=== PATIENT | female | born 1960 | race Caucasian/White ===

== ENCOUNTER 2017-04-14 02:48 | Inpatient (IN) | payer OTHER ==
[~2017-04-14] VITALS: Ht 165.1 cm; Wt 108.0 kg
[~2017-04-14 02:48] MED LIST: BUSPIRONE HCL15 M1 PO; DICLOFENAC SOD100 MG PO; FLUOXETINE HCL40 M1 PO; LEVOTHYROXINE100 MC1 PO; NAPROXEN500 M3 PO; NEXIUM40 M1 PO; PREMPRO 0.45-11 EACH PO
--- NOTE | 2017-04-14 11:41 | Operative Report ---
Operative/Inv Procedure Report Surgery Date: 04/14/17 Name of Procedure: Laparoscopic Sleeve Gastrectomy, Laparoscopic Hiatal hernia repair, Laparoscopic lysis of adhesions ~30 minutes Pre-Operative Diagnosis: Morbid Obesity BMI 41, Hypothyroid, Depression Post-Operative Diagnosis: Morbid Obesity BMI 41, Hypothyroid, Depression, Hiatal hernia Estimated Blood Loss: less than 50ml Surgeon/[employer]ry Melt Supervisor: Romain Magana DO, MD Anesthesia: general endotracheal tube IV Fluids: 900 cc Drains: None Specimens: Stomach Complications: None Condition: Stable Operative Indication: This is a 56-year-old female who presented to the office for workup for bariatric surgery. After appropriate workup was completed I discussed with the patient the band, the sleeve, and the gastric bypass. The patient chose to undergo a sleeve gastrectomy. All risks including but not limited to bleeding, infection, leak, stricture, injury to surrounding bowel/esophagus/stomach/liver/ spleen, long-term reflux, DVT/PE, and mortality of 03/999 patients were discussed in detail. The patient understood everything and decided to proceed. Operative/Procedure Note Note: The patient was brought to the operating room and placed on the operating room table in supine position. Venodyne stockings were placed and adequate general endotracheal anesthesia was obtained. The patient was prepped and draped in standard surgical fashion. Began the procedure by making a 2 cm transverse incision supraumbilically and slightly to the left of the midline. Then using a 12 mm clear Visiport and a 10 mm 0 laparoscope, the abdominal cavity was accessed. Great care was taken to go through the anterior rectus sheath, the posterior rectus sheath, and through the peritoneum. Once we entered the peritoneum the abdominal cavity was insufflated to 15 mmHg. Upon initial examination we did note omental adhesions in the midline and right side of abdomen. 5 mm port was placed in the left lateral position and adhesiolysis was done using harmonic scalpel for ~30 minutes until we had adequate room/ visualization for subsequent port placement. Accessory trocars were placed, 5 mm in the epigastrium for the Lakisha liver retractor. The retractor was inserted and the liver was retracted anteriorly exposing the hiatus, small hiatal hernia was seen. 5 mm ports were placed in the right and left upper quadrant, and a 15 mm right lateral port. Began the procedure by mobilizing the greater curvature of the stomach approximately 7 cm from the pylorus. Once the retrogastric space was reached the whole greater curvature was mobilized maintaining hemostasis using Harmonic scalpel. Full hiatal dissection was performed, a small hiatal hernia was seen. The left heber of the diaphragm was dissected away from the esophagus, reducing the hernia sac. We then brought our attention to the right heber, the pars flaccida was opened until the right heber was clearly visualized. Following this the right heber was dissected away from the esophagus as well and the esophagus was circumferentially dissected out of the chest. At the completion of dissection the esophagus was in the abdominal cavity for about 2-3 cm. The esophagus was retracted anteriorly and the hiatus was closed using 2-0 Tycron suture. At the completion of the closure there was ample room for the esophagus and the hiatus was adequately closed. Posterior adhesions were taken down using Harmonic scalpel as well. Once the stomach was adequately mobilized a 38 Nepali bougie was inserted and placed along the lesser curvature of the stomach. Once the bougie was in the appropriate position we began creating our sleeve, two 60 mm black staple loads with seamguard followed by two 60 mm purple staple loads with seamguard as well, and finished with a 45 mm purple plain load. Great care was taken to leave ample room at the incisura angularis, to prevent any twisting or kinking of the sleeve, to stay lateral to the esophagogastric fat pad, and to do a full fundal excision. At the completion of the staple line the staple line was examined, it appeared intact and no obvious bleeding was noted. The bougie was removed, the sleeve was lying nicely without any twisting or kinking. The resected stomach was removed through the right lateral port site. The port and the left upper quadrant were irrigated until clear. All ports were removed under direct visualization no obvious bleeding was noted. The 15 mm port site fascia was closed using 0 Vicryl suture. The skin was closed using 4-0 Monocryl. Steri-Strips and dressings were placed. The patient was successfully extubated and transferred to the recovery room in stable condition. The patient tolerated the procedure well with no complications. Findings: 2-3 cm hiatal hernia, 38 Fr Bougie, Midline/RUQ omental adhesions CC: Chloé SHI,Latrice
--- NOTE | 2017-04-14 12:00 | Admission Core Measures ---
Acute Coronary Syndrome (CM) ACS Core Measures Acute Coronary Syndrome Diagnosis No Congestive Heart Failure (NEW) CHF Core Measures Congestive Heart Failure Diagnosis No Cerebrovascular Accident (NEW) CVA Core Measures CVA/TIA Diagnosis No Venous Thromboembolism VTE Core Avril (View Protocol) VTE Risk Factors Surgery No Mechanical VTE Prophylaxis d/t N/A MechProphylax Ordered No VTE Pharm Prophylaxis d/t NA PharmProphylax ordered Problem List As ranked by this Provider includes Assessment & Plan 1. S/P laparoscopic sleeve gastrectomy 2. GERD (gastroesophageal reflux disease) 3. Morbid obesity HOME MEDS Home Med List Buspirone HCl 15 MG TABLET 1 TAB PO BID ANXIETY (Reported) Conjugated Estrogen Medroxypr (Prempro 0.45-1.5 MG Tablet) 1 EACH TABLET 1 TAB PO DAILY menopause (Reported) Diclofenac Sodium (Diclofenac Sodium ER) 100 MG TAB.ER.24H 1 TAB PO DAILY PAIN (Reported) Esomeprazole (Nexium) 40 MG CAPSULE.DR 1 CAP PO DAILY STOMACH IRRITATION ( Reported) Fluoxetine HCl 40 MG CAPSULE 1 CAP PO DAILY Depression (Reported) Levothyroxine Sodium 100 MCG TABLET 1 TAB PO DAILY hypothyroidism (Reported)
--- NOTE | 2017-04-14 12:03 | Surg Short-stay <48hrs Dis Sum ---
Visit Information Visit Dates Admission Date: 04/14/17 Discharge Date: 04/16/17 Surgical Short Stay DC Summary Admission Diagnosis: Morbid Obesity BMI 41, Hypothyroid, Depression Final Diagnosis: Morbid Obesity BMI 41, Hypothyroid, Depression, Hiatal hernia Procedure(s): Surgery Date: 04/14/17 Name of Procedure: Laparoscopic Sleeve Gastrectomy, Laparoscopic Hiatal hernia repair, Laparoscopic lysis of adhesions ~30 minutes Summary/Significant Findings: Electively scheduled laparoscopic sleeve gastrectomy, hiatal hernia repair, lysis of adhesions, done by on 04/14/17 for history of morbid obesity (BMI 41), hypothyroidism, depression, and a hiatal hernia appreciated during surgery. She was started on a stage 1 bariatric diet post-operatively. Pain control was transitioned from iv to oral medication. Discharged to home once tolerating diet and pain controlled. No lovenox indicated according to pre-op risk assessment. Condition at Discharge: stable Discharge Disposition: home or self care Discharge instructions provided to patient/family: Yes Post discharge follow-up plan: one week follow up with Copies to: Chloé SHI,Latrice
--- NOTE | 2017-04-14 12:08 | Patient Discharge Instructions ---
Discharge Instructions General Discharge Information You were seen/treated for: Surgery Date: 04/14/17 Name of Procedure: Laparoscopic Sleeve Gastrectomy, Laparoscopic Morbid Obesity BMI 41, Hypothyroid , Depression, Hiatal hernia You had these procedures: Surgery Date: 04/14/17 Name of Procedure: Laparoscopic Sleeve Gastrectomy, Laparoscopic Hiatal hernia repair, Laparoscopic lysis of adhesions ~30 minutes Watch for these problems: fever>101.3, increased pain, redness/swelling/drainage, dizziness, shortness of breath, chest pains No bath, but you may shower: Yes Other wound care: ok to remove outer dressings. leave white steri strips in place. keep incisions clean & dry. Diet Continue normal diet: No Recommended Diet: Bariatric Additional DIET Information: weekly bariatric stage diet advancements as directed, as tolerated Activity Full Activity/No Limits: No Activity Self Limited: Yes Pounds, do NOT lift more than: 10 Other activity limits: no heavy lifting. no strenuous activity. Additional ACTIVITY Info: walk frequently Acute Coronary Syndrome Inclusion Criteria At DC or during hospital stay patient has or had the following: ACS DIAGNOSIS No Discharge Core Measures Meds if any: Prescribed or Continued at Discharge Meds if any: NOT Prescribed or Continued at Discharge Congestive Heart Failure Inclusion Criteria At DC or during hospital stay patient has or had the following: CHF DIAGNOSIS No Discharge Core Measures Meds if any: Prescribed or Continued at Discharge Meds if any: NOT Prescribed or Continued at Discharge Cerebrovascular accident Inclusion Criteria At DC or during hospital stay patient has or had the following: CVA/TIA Diagnosis No Discharge Core Measures Meds if any: Prescribed or Continued at Discharge Meds if any: NOT Prescribed or Continued at Discharge Venous thromboembolism Inclusion Criteria VTE Diagnosis No VTE Type NONE VTE Confirmed by (Test) NONE Discharge Core Measures - Per Current guidelines, there needs to be overlap - treatment for the first 5 days of Warfarin therapy. - If discharged on Warfarin prior to 5 days of - overlap therapy, the patient will need to be - assessed for post discharge needs including - *Post discharge parental anticoagulation - *Warfarin and/or parental anticoagulation education - *Follow up date to check INR post discharge At least 5 days overlap therapy as Inpatient No Meds if any: Prescribed or Continued at Discharge Note: Overlap Therapy is Warfarin and Anticoagulant Meds if any: NOT Prescribed or Continued at Discharge
[2017-04-14] MEDS ORDERED: HYCET 7.5 MG-3473 ML PO (12:09)
[2017-04-14 13:00] VITALS: BP 110/76
--- NOTE | 2017-04-14 14:13 | PN- Bariatrics ---
Subjective Subjective: POSTOP CHECK Patient reports gas pain spreading to her shoulders. She reports her pain and nausea is well controlled. Denies voiding or passing flatus. Has not ambulated in the halls yet. Offer no other complaints. Currently tolerating small sips of her stage 1 diet. Objective Vital Signs and I&Os Vital Signs Date Time Temp Pulse Resp B/P B/P Pulse O2 O2 Flow FiO2 Mean Ox Delivery Rate 04/14 1344 Room Air Room Air Intake & Output 04/14 1600 04/14 0804/14 0000 04/13 1600 04/13 0800 04/13 0000 Intake Total Output Total Balance Patient 238 lb Weight Weight Reported by Patient Measurement Method Physical Exam: Gen - resting comfortably accompained by her sister awake an alert in NAD Cardiac - S1S2 noted, RRR Lungs - Diminished due to body habitus, CTAB Abdomen - soft, nondistended, faint bowel sounds, dressings with mild saturation , appropriately tender to palpation neelima-incisionally, no rebound or guarding noted Ext - alps in place, no edema or calf tenderness B/L Current Medications: Current Medications Sig/Sascha Start time Last Medication Dose Route Stop Time Status Admin Acetaminophen 1,000 MG Q6 04/14 1200 AC N/A 1 UNIT IV 04/15 0614 Buspirone HCl 15 MG BID 04/14 2200 AC PO Cefazolin Sodium 2,000 MG Q8H 04/14 1800 AC IV 04/15 0201 Cefazolin Sodium 2,000 MG ONCE ONE 04/14 0715 DC IV 04/14 0716 Dexamethasone 8 MG ONCE PRN 04/14 1330 AC IV PUSH 04/14 2130 Dextrose/Lactated 1,000 ML Q8H 04/14 1330 AC Ringer's IV Fluoxetine HCl 40 MG DAILY 04/15 1000 AC PO Heparin Sodium 5,000 UNIT Q8 04/14 2200 AC (Porcine) SC Heparin Sodium 5,000 UNIT ONCE ONE 04/14 0715 DC (Porcine) SC 04/14 0716 Hydrocodone Bitart/ 15 ML Q6P PRN 04/14 1330 AC Acetaminophen PO Hydromorphone HCl 1 MG Q4P PRN 04/14 1330 AC IV Levothyroxine Sodium 0.1 MG DAILY AC 04/15 0700 AC PO Ondansetron HCl 4 MG Q6P PRN 04/14 1330 AC IV Pantoprazole Sodium 40 MG DAILY 04/15 1000 AC IV Scopolamine HBr 0 .STK-MED ONE 04/14 0911 DC TOP Simethicone 40 MG Q6P PRN 04/14 1330 AC PO Assessment/Plan Assessment/Plan This is a 56 year-old female with a h/o hypothyroid and depression who is POD 0 s/p laparoscopic sleeve gastrectomy, hiatal hernia repair and RIMA secondary to morbid obesity, BMI 41 Cont stage 1 bariatric diet, IVF NPO after midnight for possible UGI tomorrow am Postop abx - ancef x2 Antiemetics/analgesics prn Home meds on board DVT ppx - alps, hsq GI ppx on board Encourage ambulation, IS Core Measures Venous Thromboembolism VTE Risk Factors Surgery No Mechanical VTE Prophylaxis d/t N/A MechProphylax Ordered No VTE Pharm Prophylaxis d/t NA PharmProphylax ordered
[2017-04-14 17:00] VITALS: BP 112/74
[2017-04-14 22:13] VITALS: BP 120/74
[2017-04-15 01:00] VITALS: BP 100/66
[2017-04-15 05:00] VITALS: BP 102/60
--- NOTE | 2017-04-15 07:50 | PN- Bariatrics ---
See Addendum Subjective Subjective: Patient reports improvment in her gas/co2 pain. She denies passing flatus. She reports ambulating in the halls. She reports tolerating stage 1 clears without any nausea or vomiting. She report stiff neck when she recieved dilaudid last night. She reports pain is controlled with Hyacet. She offer no other complaints. Objective Vital Signs and I&Os Vital Signs Date Time Temp Pulse Resp B/P B/P Pulse O2 O2 Flow FiO2 Mean Ox Delivery Rate 04/15 0600 95 Room Air 04/15 0500 97.7 72 20 102/60 94 Room Air 04/15 0100 98.1 62 20 100/66 95 Room Air 04/14 2213 97.7 64 20 120/74 94 Room Air 04/14 2200 94 Room Air 04/14 1800 97 Room Air Room Air 04/14 1700 98.6 70 18 112/74 96 Room Air 04/14 1344 Room Air Room Air 04/14 1330 97 Room Air Room Air 04/14 1300 98.0 67 16 110/76 97 Room Air Room Air Intake & Output 04/15 1600 04/15 0800 04/15 0000 04/14 1600 04/14 0800 04/14 0000 Intake Total 980 1570 305 Output Total 500 0 150 Balance 480 1570 155 Intake, IV 950 1120 125 Intake, Oral 30 450 180 Number 0 0 0 Bowel Movements Output, Urine 500 0 150 Patient 238 lb Weight Weight Reported by Patient Measurement Method Physical Exam: Gen - resting comfortably accompained by her sister awake an alert in NAD Cardiac - S1S2 noted, RRR Lungs - Diminished due to body habitus, CTAB Abdomen - soft, nondistended, faint bowel sounds, one dressing with mild sanguineous saturation, remaining 4 are c/d/i, appropriately tender to palpation neelima-incisionally, no rebound or guarding noted Ext - alps in place, no edema or calf tenderness B/L Current Medications: Current Medications Sig/Sascha Start time Last Medication Dose Route Stop Time Status Admin Acetaminophen 1,000 MG Q6H 04/14 1600 AC 04/15 N/A 1 UNIT IV 04/15 1014 0416 Acetaminophen 1,000 MG Q6 04/14 1200 DC N/A 1 UNIT IV 04/15 0614 Buspirone HCl 15 MG BID 04/14 220 AC 04/14 PO 2135 Cefazolin Sodium 2,000 MG Q8H 04/14 1800 DC 04/15 IV 04/15 0201 0247 Dexamethasone 8 MG ONCE PRN 04/14 1330 DC IV PUSH 04/14 2130 Dextrose/Lactated 1,000 ML Q8H 04/14 1330 AC 04/15 Ringer's IV 0543 Fluoxetine HCl 40 MG DAILY 04/15 1000 AC PO Heparin Sodium 5,000 UNIT Q8 04/14 2200 AC 04/15 (Porcine) SC 0544 Hydrocodone Bitart/ 15 ML Q6P PRN 04/14 1330 AC 04/15 Acetaminophen PO 0544 Hydromorphone HCl 1 MG Q4P PRN 04/14 1330 AC 04/15 IV 0023 Levothyroxine Sodium 0.1 MG DAILY AC 04/15 0700 AC 04/15 PO 0544 Ondansetron HCl 4 MG Q6P PRN 04/14 1330 AC IV Pantoprazole Sodium 40 MG DAILY 04/15 1000 AC IV Scopolamine HBr 0 .STK-MED ONE 04/14 0911 DC TOP Simethicone 40 MG Q6P PRN 04/14 1330 AC 04/15 PO 0544 Assessment/Plan Assessment/Plan This is a 56 year-old female with a h/o hypothyroidism and depression who is POD 1 s/p laparoscopic sleeve gastrectomy, hiatal hernia repair and RIMA secondary to morbid obesity who is recovering well Advance to stage 1 bariatric diet D/c IV fluids Antiemetics prn Transition off IV narcotics Home meds on board DVT ppx - alps, hsq GI ppx on board Encourage ambulation, IS Anticiapte d/c within 24-48 hours D/w Dr. Magana Core Measures Venous Thromboembolism VTE Risk Factors Surgery No Mechanical VTE Prophylaxis d/t N/A MechProphylax Ordered No VTE Pharm Prophylaxis d/t NA PharmProphylax ordered
[2017-04-15 12:05] LABS: ABSOLUTE BASOPHIL COUNT 0 /CUMM (0.0-0.2); ABSOLUTE EOSINOPHIL COUNT 0 /CUMM (0.0-0.7); ABSOLUTE GRANULOCYTE CT 6.3 /CUMM (1.4-6.5); ABSOLUTE LYMPH COUNT 2.8 /CUMM (1.2-3.4); ABSOLUTE MONOCYTE COUNT 0.7 /CUMM (0.10-0.60); BASOPHIL % 0.3 % (0.0-2.0); EOSINOPHIL % 0 % (0-5); GRANULOCYTE % 63.7 % (42.2-75.2); HEMATOCRIT 32.8 % (37-47); MEAN CORPUSCULAR HGB 29.9 PG (27.0-31.0); MEAN CORPUSCULAR HGB CONC 33.7 G/DL (33.0-37.0); MEAN CORPUSCULAR VOLUME 88.8 FL (81.0-99.0); MEAN PLATELET VOLUME 7.5 FL (7.4-10.4); PLATELET COUNT 339 /CUMM (130-400); RBC DISTRIBUTION WIDTH 12.8 % (11.5-14.5); RED BLOOD CELL CT 3.69 /CUMM (4.20-5.40); WHITE BLOOD CELL COUNT 9.8 /CUMM (4.8-10.8)
[2017-04-15 13:33] VITALS: BP 118/62
[2017-04-15 22:05] VITALS: BP 110/60
[2017-04-16 06:36] VITALS: BP 94/58
[2017-04-16] MEDS ORDERED: HYCET 7.5 MG-3473 ML PO (07:34)
--- NOTE | 2017-04-16 07:39 | PN- Bariatrics ---
Subjective Subjective: Reports tolerating stage 1 diet. No nausea. Eager to try stage 2 diet. Passing flatus. No bm. Ambulating well. No dizziness. No shortness of breath. No chest pains. Voiding well. Anticipates discharge home today. Objective Vital Signs and I&Os Vital Signs Date Time Temp Pulse Resp B/P B/P Pulse O2 O2 Flow FiO2 Mean Ox Delivery Rate 04/16 0636 98.0 54 18 94/58 94 Room Air 04/16 0600 94 Room Air 04/16 0000 95 Room Air 04/15 2205 98.8 67 18 110/60 95 Room Air 04/15 2200 95 Room Air 04/15 1600 97 Room Air 04/15 1400 97 04/15 1333 98.1 68 20 118/62 97 Intake & Output 04/16 0800 04/16 0000 04/15 1600 04/15 0800 04/15 0000 04/14 1600 Intake Total 90 293 211 8483 1570 305 Output Total 300 500 0 150 Balance 90 466 772 6720 1570 155 Intake, IV 1200 1120 125 Intake, Oral 90 840 420 510 450 180 Number 0 0 0 Bowel Movements Output, Urine 300 500 0 150 Patient 238 lb Weight Weight Reported by Patient Measurement Method Physical Exam: General - alert & oriented x 3. comfortable. no acute distress. Lungs - clear bilaterally. no w/r/r. Cardiac - s1s2. reg. Abdomen - soft. dressings c/d/i. expected neelima-incisional tenderness. Extremities - warm bilaterally. no c/c/e. calves soft and nontender b/l. Current Medications: Current Medications Sig/Sascha Start time Last Medication Dose Route Stop Time Status Admin Acetaminophen 1,000 MG Q6H 04/14 1600 DC 04/15 N/A 1 UNIT IV 04/15 1014 0823 Buspirone HCl 15 MG BID 04/14 2200 AC 04/15 PO 2057 Dextrose/Lactated 1,000 ML Q8H 04/14 1330 DC 04/15 Ringer's IV 0543 Fluoxetine HCl 40 MG DAILY 04/15 1000 AC 04/15 PO 0823 Heparin Sodium 5,000 UNIT Q8 04/14 2200 AC 04/16 (Porcine) SC 0602 Hydrocodone Bitart/ 15 ML Q6P PRN 04/14 1330 AC 04/16 Acetaminophen PO 0207 Hydromorphone HCl 1 MG Q4P PRN 04/14 1330 DC 04/15 IV 0023 Ketorolac 30 MG .STK-MED ONE 04/15 2316 DC Tromethamine IM 04/15 2318 Ketorolac 15 MG Q8 04/15 2200 AC 04/16 Tromethamine IV 04/17 2159 0601 Levothyroxine Sodium 0.1 MG DAILY AC 04/15 0700 AC 04/16 PO 0601 Morphine Sulfate 4 MG Q4-6 PRN PRN 04/15 0815 AC 04/15 IV 1551 Omeprazole 40 MG DAILY AC 04/15 0815 AC 04/16 PO 0601 Ondansetron HCl 4 MG Q6P PRN 04/14 1330 AC 04/15 IV 1600 Pantoprazole Sodium 40 MG DAILY 04/15 1000 CAN IV Simethicone 40 MG Q6P PRN 04/14 1330 AC 04/16 PO 0207 Results Last 48 Hours of Labs: Laboratory Tests 04/15 1126 Chemistry Sodium (137 - 145 mmol/L) 140 Potassium (3.5 - 5.1 mmol/L) 3.6 Chloride (98 - 107 mmol/L) 103 Carbon Dioxide (22 - 30 mmol/L) 28 Anion Gap (5 - 16) 9 BUN (7 - 17 mg/dL) 8 Creatinine (0.5 - 1.0 mg/dL) 0.7 Estimated GFR (>60 ml/min) > 60 BUN/Creatinine Ratio (7 - 25 %) 11.4 Glucose (65 - 99 mg/dL) 90 Magnesium (1.6 - 2.3 mg/dL) 2.2 Hematology CBC w Diff NO MAN DIFF REQ WBC (4.8 - 10.8 /CUMM) 9.8 RBC (4.20 - 5.40 /CUMM) 3.69 L Hgb (12.0 - 16.0 G/DL) 11.1 L Hct (37 - 47 %) 32.8 L MCV (81.0 - 99.0 FL) 88.8 MCH (27.0 - 31.0 PG) 29.9 MCHC (33.0 - 37.0 G/DL) 33.7 RDW (11.5 - 14.5 %) 12.8 Plt Count (130 - 400 /CUMM) 339 MPV (7.4 - 10.4 FL) 7.5 Gran % (42.2 - 75.2 %) 63.7 Lymphocytes % (20.5 - 51.1 %) 28.4 Monocytes % (1.7 - 9.3 %) 7.6 Eosinophils % (0 - 5 %) 0 Basophils % (0.0 - 2.0 %) 0.3 Absolute Granulocytes (1.4 - 6.5 /CUMM) 6.3 Absolute Lymphocytes (1.2 - 3.4 /CUMM) 2.8 Absolute Monocytes (0.10 - 0.60 /CUMM) 0.7 H Absolute Eosinophils (0.0 - 0.7 /CUMM) 0 Absolute Basophils (0.0 - 0.2 /CUMM) 0 Assessment/Plan Assessment/Plan This 56 year old female is POD# 2 s/p Laparoscopic Sleeve Gastrectomy, Laparoscopic Hiatal hernia repair, Laparoscopic lysis of adhesions ~30 minutes, for hx Morbid Obesity BMI 41, Hypothyroid, Depression, and Hiatal hernia tolerating stage 1 diet. advance to stage 2 diet hycet prn pain control oob/ambulating well hep sc - dvt ppx protonix iv - gi ppx d/c home today will d/w Core Measures Venous Thromboembolism VTE Risk Factors Surgery No Mechanical VTE Prophylaxis d/t N/A MechProphylax Ordered No VTE Pharm Prophylaxis d/t NA PharmProphylax ordered
== END 2017-04-16 12:10 | DRG 621 ==
LOC: SDA 02:48 → ENRESERV 12:14 → ENTRNSPT 12:31 → EDTRNSPTSTS 12:52 → EDTRNSPT 12:52 → 2NB 13:00 → CMPTRNSPT 13:40 → ENPENDDIS 04-16 08:10 → 2NB 04-16 12:10
PROVIDERS: Physician Assistant
PROC: 0DB64Z3 Excision of Stomach, Percutaneous Endoscopic Approach, Vertical (ICD-10-PCS; principal; 2017-04-15)
DX: E66.01 Morbid (severe) obesity due to excess calories (principal); E03.9 Hypothyroidism, unspecified; Z68.41 Body mass index [BMI] 40.0-44.9, adult; K21.9 Gastro-esophageal reflux disease without esophagitis; F32.9 Major depressive disorder, single episode, unspecified; K44.9 Diaphragmatic hernia without obstruction or gangrene; Z87.891 Personal history of nicotine dependence
CPT/HCPCS: 2NBP; 82436; C9399; J0131; J0690; J1100; J1644; J1885; J2405; J3490